=== PATIENT | male | born 1950 | race Caucasian/White ===

== ENCOUNTER 2021-03-07 10:08 | Emergency (ER) | payer MEDICARE, MEDICAID ==
[~2021-03-07] VITALS: Ht 175 cm; Wt 93.0 kg
[2021-03-07 11:02] LABS: BASOPHILS % (AUTO) 1 % (0-10); EOSINOPHILS # (AUTO) 0.2 10^3/uL (0.0-0.3); EOSINOPHILS % (AUTO) 4 % (0-10); HEMATOCRIT 33 % (40-54); HEMOGLOBIN 9.3 g/dL (13.3-17.7); LYMPHOCYTES # (AUTO) 0.8 10^3/uL (1.0-4.0); LYMPHOCYTES % (AUTO) 14 % (12-44); MEAN CORPUSCULAR HEMOGLOBIN 24 pg (25-34); MEAN CORPUSCULAR HGB CONC 28 g/dL (32-36); MEAN CORPUSCULAR VOLUME 83 fL (80-99); MEAN PLATELET VOLUME 9.4 fL (9.0-12.2); MONOCYTES # (AUTO) 0.6 10^3/uL (0.0-1.0); MONOCYTES % (AUTO) 11 % (0-12); NEUTROPHILS % (AUTO) 70 % (42-75); PLATELET COUNT 287 10^3/uL (130-400); WHITE BLOOD COUNT 5.7 10^3/uL (4.3-11.0)
[2021-03-07 11:59] LABS: INR 1.7 (0.8-1.4); PROTHROMBIN TIME PATIENT 20.2 SEC (12.2-14.7)
--- NOTE | 2021-03-07 14:11 | ED EENT ---
History of Present Illness General Chief Complaint: Nasal Problems Stated Complaint: NOSE BLEED Nursing Triage Note: ARRIVED FROM [facility] IN A WC. FACILTY STATES HE HAD HIS NOSE REMOVED DUE TO CANCER AND THEY CAN'T GET THE BLEEDING TO STOP. STATES THEY CALLED DR REYNOLDS WHO WAS GOING TO MEET HIM HERE. PT UNABLE TO TELL ME IF HE HAD THE SURGERY HERE. Source: patient Exam Limitations: no limitations Allergies and Home Medications Allergies Coded Allergies: Penicillins (Verified Allergy, Unknown, 03/06/21) sulfamethoxazole (Verified Allergy, Unknown, 03/06/21) Past Yvrgiha-Nszphc-Xjwces Hx Patient Social History Recent Infectious Disease Expo: No Recent Hopitalizations: Yes (NASAL SURGEY) Past Medical History Nose Respiratory: Yes Pneumonia Cardiac: Yes Coronary Artery Disease, Heart Attack Neurological: Yes Stroke Genitourinary: Yes UTI-Chronic Gastrointestinal: No Musculoskeletal: No Endocrine: Yes Diabetes, Non-Insulin dep HEENT: No Cancer: Yes (NASAL SQUAMOUS CELL) Psychosocial: No Integumentary: No Physical Exam Vital Signs Vital Signs - First Documented 03/07/21 10:17 Temp 36.1 Pulse 107 Resp 16 B/P (MAP) 99/76 (84) Pulse Ox 94 O2 Delivery Room Air Height, Weight, BMI Height: '" Weight: lbs. oz. kg; 30.00 BMI Method: Progress/Results/Core Measures Results/Orders Lab Results Laboratory Tests Test 03/07/21 10:52 03/07/21 11:40 Range/Units White Blood Count 5.7 4.3-11.0 10^3/uL Red Blood Count 3.95 L 4.30-5.52 10^6/uL Hemoglobin 9.3 L 13.3-17.7 g/dL Hematocrit 33 L 40-54 % Mean Corpuscular Volume 83 80-99 fL Mean Corpuscular Hemoglobin 24 L 25-34 pg Mean Corpuscular Hemoglobin Concent 28 L 32-36 g/dL Red Cell Distribution Width 21.6 H 10.0-14.5 % Platelet Count 287 130-400 10^3/uL Mean Platelet Volume 9.4 9.0-12.2 fL Immature Granulocyte % (Auto) 0 % Neutrophils (%) (Auto) 70 42-75 % Lymphocytes (%) (Auto) 14 12-44 % Monocytes (%) (Auto) 11 0-12 % Eosinophils (%) (Auto) 4 0-10 % Basophils (%) (Auto) 1 0-10 % Neutrophils # (Auto) 4.0 1.8-7.8 10^3/uL Lymphocytes # (Auto) 0.8 L 1.0-4.0 10^3/uL Monocytes # (Auto) 0.6 0.0-1.0 10^3/uL Eosinophils # (Auto) 0.2 0.0-0.3 10^3/uL Basophils # (Auto) 0.0 0.0-0.1 10^3/uL Immature Granulocyte # (Auto) 0.0 0.0-0.1 10^3/uL Prothrombin Time 20.2 H 12.2-14.7 SEC INR Comment 1.7 H 0.8-1.4 My Orders Orders - YUDI CLAYTON MD Cbc With Automated Diff (03/07/21 10:37) Protime With Inr (03/07/21 10:37) Vital Signs/I&O 03/07/21 10:17 Temp 36.1 Pulse 107 Resp 16 B/P (MAP) 99/76 (84) Pulse Ox 94 O2 Delivery Room Air Blood Pressure Mean: 84 Departure Impression Primary Impression: Postoperative bleeding from incision 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 Referrals: NI JAMES MD (PCP) Primary Care Physician SHEYLA GUTIERREZ (Family) Primary Care Physician Patient Instructions: Bleeding After Surgery Add. Discharge Instructions: Continue holding blood thinning medications such as Eliquis or Xarelto for the full 10 days as previously directed by Sheyla Gutierrez. Please check with Sheyla Gutierrez before restarting these medications. Expect serous sanguinous drainage persistently. A loose packing of the gauze or Merisel may be placed in the left nasal cavity to absorb moisture. Merisel may be cut to fit and will expand to fill the space. Packing should be replaced frequently when it becomes saturated. If the bleeding of bright red blood returns, cut a piece of Surgicel to fit to the bleeding space and apply direct pressure for 20 to 30 minutes. If bleeding does not stop, return to care. Keep follow-up appointments as previously directed. Call with questions or concerns. Return to the ER if there is worsening of condition or new urgent problems arise. All discharge instructions reviewed with patient and/or family. Voiced understanding. YUDI CLAYTON MD Mar 07, 2021 14:11
--- NOTE | 2021-03-07 14:15 | Consultation - Surgery ---
History of Present Illness History of Present Illness Patient Consulted On(jaylan/time) 03/07/21 12:14 Date Seen by Provider: Mar 07, 2021 Time Seen by Provider: 12:14 History of Present Illness Consult requested by Dr. Lyle for bleeding open wound. Patient is a 70-year-old male who underwent rhinectomy. He failed reconstruction and then had positive margins. He had surgical intervention in [facility]. He is in a snf currently. Patient has had some bleeding from his wound which attempted to have cauterized has failed. And continued to have some oozing. I was contacted to see if there is anything that I could potentially do. Patient poor historian. Patient was transferred to the emergency department for further evaluation and treatment. Patient with no caregivers present at this time. Allergies and Home Medications Allergies Coded Allergies: Penicillins (Verified Allergy, Unknown, 03/06/21) sulfamethoxazole (Verified Allergy, Unknown, 03/06/21) Patient Home Medication List Home Medication List Reviewed: Yes Past Feexmeq-Mlmxgn-Waynvp Hx Patient Social History Recent Hopitalizations: Yes (NASAL SURGEY) Surgeries History of Surgeries: Yes (Rhinectomy) Surgeries: Nose Respiratory History of Respiratory Disorde: Yes Respiratory Disorders: Pneumonia Cardiovascular History of Cardiac Disorders: Yes Cardiac Disorders: Coronary Artery Disease, Heart Attack Neurological History of Neurological Disord: Yes Neurological Disorders: Stroke Genitourinary History of Genitourinary Disor: Yes Genitourinary Disorders: UTI-Chronic Gastrointestinal History of Gastrointestinal Di: No Musculoskeletal History of Musculoskeletal Dis: No Endocrine History of Endocrine Disorders: Yes Endocrine Disorders: Diabetes, Non-Insulin dep HEENT History of HEENT Disorders: No Cancer History of Cancer: Yes (NASAL SQUAMOUS CELL) Psychosocial History of Psychiatric Problem: No Integumentary History of Skin or Integumenta: No Reviewed Nursing Assessment Reviewed/Agree w Nursing PMH: Yes Family Medical History Significant Family History: No Pertinent Family Hx Review of Systems-General Constitutional: No chills, No diaphoresis EENTM: other (Open wound from rhinectomy, scab on scalp of head from reconstruction attempt); No ear pain, No blurred vision Respiratory: No cough, No dyspnea on exertion Cardiovascular: no symptoms reported; No chest pain Gastrointestinal: No constipation, No nausea, No vomiting Genitourinary: No decreased output, No discharge Musculoskeletal: No back pain, No gout, No joint pain Skin: No change in color, No change in hair/nails Psychiatric/Neurological: Denies Anxiety, Denies Depressed, Denies Emotional Problems All Other Systems Reviewed Negative Unless Noted: Yes (Negative excepted noted.) Physical Exam-General Problems Physical Exam Vital Signs Vital Signs - First Documented 03/07/21 10:17 Temp 36.1 Pulse 107 Resp 16 B/P (MAP) 99/76 (84) Pulse Ox 94 O2 Delivery Room Air Capillary Refill : Less Than 3 Seconds General Appearance: WD/WN, no apparent distress HEENT: PERRL/EOMI, other (Open wound with granulation appearing tissue at the wound where the bridge of the nose would have been. There is continued bleeding from this area. The left nasal cavity exposed fairly open wound. Which is greater than the right) Neck: supple, normal inspection Respiratory: chest non-tender, no respiratory distress, no accessory muscle use Cardiovascular: regular rate, rhythm, no JVD Gastrointestinal: non tender, soft Rectal: deferred Back: no CVA tenderness, no vertebral tenderness Extremities: non-tender; No inflammation Neurologic/Psychiatric: no motor/sensory deficits, alert, normal mood/affect Skin: normal color, warm/dry Lymphatic: no adenopathy Data Review Labs Laboratory Tests 03/07/21 10:52: White Blood Count 5.7, Red Blood Count 3.95L, Hemoglobin 9.3L, Hematocrit 33L, Mean Corpuscular Volume 83, Mean Corpuscular Hemoglobin 24L, Mean Corpuscular Hemoglobin Concent 28L, Red Cell Distribution Width 21.6H, Platelet Count 287, Mean Platelet Volume 9.4, Immature Granulocyte % (Auto) 0, Neutrophils (%) (Auto) 70, Lymphocytes (%) (Auto) 14, Monocytes (%) (Auto) 11, Eosinophils (%) (Auto) 4, Basophils (%) (Auto) 1, Neutrophils # (Auto) 4.0, Lymphocytes # (Auto) 0.8L, Monocytes # (Auto) 0.6, Eosinophils # (Auto) 0.2, Basophils # (Auto) 0.0, Immature Granulocyte # (Auto) 0.0 03/07/21 11:40: Prothrombin Time 20.2H, INR Comment 1.7H Assessment/Plan Assessment/Plan Assessment/Plan Open bleeding wound status post rhinectomy Patient discussed need for hemostasis. He has had previous cauterization performed which this has recurred. Patient discussed cauterizing with silver nitrate and applying Surgicel as well which patient is in agreement with. Patient has silver nitrate applied to the open wound from the rhinectomy. This was then held with pressure with 4 x 4 gauze. Once hemostasis was achieved. Surgicel was cut into small pieces and placed over the areas that needed hemostasis. Pressure was held again for approximately 10 to 15 minutes. We monitored this area hemostasis was maintained. Okay with patient being discharged home with his previous schedule follow-up. Instructed family that showed up on management using Surgicel and pressure if unable to maintain to return to the ER and may need surgical intervention ASHLEY REYNOLDS DO Mar 07, 2021 14:15
[2021-03-07 14:22] VITALS: BP 118/75
== END 2021-03-07 14:22 | disposition home or self-care (01) ==
LOC: EDUNIT# 10:08 → ER 10:09
DX: C44.321 Squamous cell carcinoma of skin of nose (principal); T81.89XA Other complications of procedures, not elsewhere classified, initial encounter; E11.9 Type 2 diabetes mellitus without complications; I25.2 Old myocardial infarction; Z88.0 Allergy status to penicillin; Z88.2 Allergy status to sulfonamides; Z86.73 Personal history of transient ischemic attack (TIA), and cerebral infarction without residual deficits; Z79.01 Long term (current) use of anticoagulants
CPT/HCPCS: 36415; 85025; 85610; 99282

== ENCOUNTER → 2021-03-21 | Outpatient (CLI) | payer MEDICARE, MEDICAID ==
--- NOTE | 2021-03-21 14:30 | Diagnostic Imaging Report ---
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 Serum blood glucose level at the time of injection was 101 mg/dL. Patient was administered 14.1 mCi F-18 FDG intravenously in the left antecubital location and whole body PET imaging was performed. Noncontrast CT was also performed for attenuation correction and anatomic correlation. No prior studies are available for comparison. There is symmetric activity throughout the brain. There is a large hypermetabolic soft tissue mass originating in the left nasal cavity and extending to involve the entire left maxillary sinus and left ethmoid sinus. SUV max is approximately 17. Soft tissues of the neck are unremarkable. There are numerous hypermetabolic masses throughout both lungs consistent with pulmonary metastatic disease. A hypermetabolic mass in the right upper lobe measures 2.7 cm and demonstrates SUV max of approximately 12.7. There is a 2.6 cm right lower lobe mass with an SUV max of 10.4. No definite mediastinal or hilar hypermetabolism is identified. The patient does have [id number] bilateral pleural effusions. Liver contains two small areas of increased activity, largest in the inferior right lobe. These would be considered indeterminate and a dedicated CT would be useful for further evaluation. The inferior right lobe of the liver activity shows an SUV max of approximately 5. Both kidneys contain nonobstructing calculi, largest on the left 14 mm in size. There are numerous stones in the gallbladder. There is an approximately 3 cm mass arising from the right kidney posteriorly. A solid renal mass cannot be entirely excluded. No other suspicious uptake in the abdomen or pelvis is identified. There is a fat-containing umbilical hernia. The lower extremities are unremarkable. IMPRESSION: 1. Hypermetabolic left nasal cavity mass consistent with patient's primary malignancy. No definite hypermetabolic neck lymph nodes are seen. 2. Hypermetabolic pulmonary masses consistent with pulmonary metastatic disease. There are also [id number]-[id number] bilateral pleural effusions. 3. Questionable hypermetabolic lesions in the liver. Dedicated CT abdomen with and without IV contrast would be recommended for further evaluation. 4. Bilateral nonobstructing renal calculi and cholelithiasis. 5. Questionable solid mass involving the right kidney. This could be evaluated with the pre and postcontrast CT abdomen as well to evaluate for solid renal mass. Dictated by: Dictated on workstation # [id number]
== END ==
LOC: RAD 08:34
PROVIDERS: ATTEND Internal Medicine Hematology & Oncology
DX: C30.0 Malignant neoplasm of nasal cavity (principal); C78.00 Secondary malignant neoplasm of unspecified lung
CPT/HCPCS: 78816; A9552

== ENCOUNTER → 2021-03-27 | Outpatient (CLI) | payer MEDICARE, MEDICAID | LOC: WOUNDCARE 13:19 | PROVIDERS: ATTEND Surgery | DX: C44.321 Squamous cell carcinoma of skin of nose (principal); L98.492 Non-pressure chronic ulcer of skin of other sites with fat layer exposed | CPT/HCPCS: 99213 ==

== ENCOUNTER → 2021-03-31 | Outpatient (CLI) | payer MEDICARE, MEDICAID ==
[~2021-03-31] MED LIST: HOLD METFORMIN - RECEIVED CONTRAST 20 ML VIAL IV SCH
[2021-03-31] MEDS: IOHEXOL 350 MG/ML 100 ML (OMNIPAQUE 350) VIAL IV ONE (10:01)
[2021-03-31] MEDS: NS 100 ML (IVPB) BAG IV ONE (10:02)
[2021-03-31] MEDS: CATHETER FLUSH 10 ML SYR IV PRN (10:02)
--- NOTE | 2021-03-31 11:03 | Diagnostic Imaging Report ---
PROCEDURE: CT abdomen and pelvis with and without contrast. TECHNIQUE: Precontrast acquisitions were acquired through the abdomen and pelvis. Multiple contiguous axial images were obtained through the abdomen and pelvis after the administration of intravenous contrast. Auto Exposure Controls were utilized during the CT exam to meet ALARA standards for radiation dose reduction. INDICATION: Malignant neoplasm of the frontal sinus. Patient had a recent abnormal PET/CT study demonstrating questionable liver lesion as well as a questionable right renal lesion. This study is performed for further evaluation. COMPARISON: Correlation is made with prior PET/CT study from 03/21/2021. FINDINGS: There are small bilateral pleural effusions. There are nodules in both lung bases, consistent with pulmonary metastatic disease. The liver contains two subtle low densities. A lesion in the dome of the right lobe measures 15 mm. A low-density lesion more inferiorly in the right lobe measures 12 mm. Both of these lesions did not show increased uptake on recent PET study and are concerning for hepatic metastases. Gallbladder contains multiple stones. No biliary ductal dilatation is seen. Pancreas and spleen are unremarkable apart from multiple granulomas in the spleen. No adrenal mass is identified. Both kidneys contain nonobstructing calculi. Largest calculus on the right is approximately 9 mm. The largest calculus on the left is 13 mm. There is also a low-attenuation lesion in the lower pole of the right kidney measuring 4.9 cm and most consistent with a cyst. There is also a lesion in the posterior cortex of the right kidney measuring approximately 3 cm in size. This does show contrast enhancement and is concerning for small renal cell carcinoma. Aorta is nonaneurysmal. There is no central retroperitoneal or mesenteric lymphadenopathy. Generalized diverticulosis of the colon is noted but no evidence of acute diverticulitis. The bladder and prostate are unremarkable. There are fat-containing inguinal hernias bilaterally. There is also a fat-containing umbilical hernia. No free fluid or fluid collection is seen. No pelvic lymphadenopathy is identified. Osseous structures are without osteolytic or osteoblastic lesion. IMPRESSION: 1. Small bilateral pleural effusions and findings consistent with pulmonary metastatic disease. 2. Two low-density lesions in the liver which correspond with areas of hypermetabolism on PET and are concerning for hepatic metastases. 3. Cholelithiasis. 4. Features concerning for a solid right renal mass. This should be considered renal cell carcinoma until proven otherwise. 5. Nonobstructing bilateral nephrolithiases. 6. Uncomplicated diverticulosis. 7. Fat-containing umbilical and inguinal hernias. Dictated by: Dictated on workstation # [id number]
== END ==
LOC: RAD 08:45
PROVIDERS: ATTEND Internal Medicine Hematology & Oncology
DX: Z51.12 Encounter for antineoplastic immunotherapy (principal); C31.2 Malignant neoplasm of frontal sinus; J90 Pleural effusion, not elsewhere classified; K80.20 Calculus of gallbladder without cholecystitis without obstruction; N20.0 Calculus of kidney; K57.30 Diverticulosis of large intestine without perforation or abscess without bleeding; K40.90 Unilateral inguinal hernia, without obstruction or gangrene, not specified as recurrent; K42.9 Umbilical hernia without obstruction or gangrene
CPT/HCPCS: 74178

== ENCOUNTER → 2021-04-14 | Outpatient (CLI) | payer MEDICARE, MEDICAID ==
--- NOTE | 2021-04-14 11:59 | Diagnostic Imaging Report ---
PROCEDURE: US right lower extremity venous. TECHNIQUE: Multiple real-time grayscale images were obtained over the right lower extremity in various projections. Additional spectral analysis and color Doppler duplex images were also obtained. INDICATION: Pain and swelling right leg. FINDINGS: Real-time color Doppler imaging shows a normal blood flow throughout the right lower extremity venous system from the common femoral vein to the ankle. Calf compression shows normal augmentation of flow at the popliteal level. IMPRESSION: No evidence of venous thrombosis within the right lower extremity. Dictated by: Dictated on workstation # [id number]
== END ==
LOC: RAD 10:55
PROVIDERS: ATTEND Internal Medicine Hematology & Oncology
DX: M79.661 Pain in right lower leg (principal); R22.41 Localized swelling, mass and lump, right lower limb

== ENCOUNTER 2021-05-09 08:40 | Outpatient (RCR) | payer MEDICARE, MEDICAID ==
[2021-03-03 13:13] LABS: BASOPHILS % (AUTO) 1 % (0-10); EOSINOPHILS # (AUTO) 0.2 10^3/uL (0.0-0.3); EOSINOPHILS % (AUTO) 4 % (0-10); HEMATOCRIT 34 % (40-54); HEMOGLOBIN 9.6 g/dL (13.3-17.7); LYMPHOCYTES # (AUTO) 0.9 10^3/uL (1.0-4.0); LYMPHOCYTES % (AUTO) 17 % (12-44); MEAN CORPUSCULAR HEMOGLOBIN 23 pg (25-34); MEAN CORPUSCULAR HGB CONC 29 g/dL (32-36); MEAN CORPUSCULAR VOLUME 82 fL (80-99); MEAN PLATELET VOLUME 9.2 fL (9.0-12.2); MONOCYTES # (AUTO) 0.5 10^3/uL (0.0-1.0); MONOCYTES % (AUTO) 9 % (0-12); NEUTROPHILS # (AUTO) 3.9 10^3/uL (1.8-7.8); NEUTROPHILS % (AUTO) 70 % (42-75); PLATELET COUNT 327 10^3/uL (130-400); WHITE BLOOD COUNT 5.6 10^3/uL (4.3-11.0)
[2021-03-03 13:32] LABS: ALANINE AMINOTRANSFERASE 14 U/L (0-55); ALBUMIN 3.1 GM/DL (3.2-4.5); ALKALINE PHOSPHATASE 121 U/L (40-136); BILIRUBIN,TOTAL 0.3 MG/DL (0.1-1.0); BUN/CREATININE RATIO 16; CALCIUM 8.3 MG/DL (8.5-10.1); CARBON DIOXIDE 27 MMOL/L (21-32); CHLORIDE 100 MMOL/L (98-107); CREATININE SERUM 0.75 MG/DL (0.60-1.30); GFR ESTIMATED > 60; GLUCOSE 118 MG/DL (70-105); POTASSIUM 3.8 MMOL/L (3.6-5.0); SODIUM 136 MMOL/L (135-145); TOTAL PROTEIN 6.1 GM/DL (6.4-8.2)
[2021-05-05 09:33] LABS: BASOPHILS # (AUTO) 0.1 10^3/uL (0.0-0.1); BASOPHILS % (AUTO) 1 % (0-10); EOSINOPHILS # (AUTO) 0.4 10^3/uL (0.0-0.3); EOSINOPHILS % (AUTO) 8 % (0-10); HEMATOCRIT 35 % (40-54); HEMOGLOBIN 9.9 g/dL (13.3-17.7); LYMPHOCYTES # (AUTO) 0.7 10^3/uL (1.0-4.0); LYMPHOCYTES % (AUTO) 13 % (12-44); MEAN CORPUSCULAR HEMOGLOBIN 25 pg (25-34); MEAN CORPUSCULAR HGB CONC 28 g/dL (32-36); MEAN CORPUSCULAR VOLUME 86 fL (80-99); MEAN PLATELET VOLUME 9.9 fL (9.0-12.2); MONOCYTES # (AUTO) 0.5 10^3/uL (0.0-1.0); MONOCYTES % (AUTO) 9 % (0-12); NEUTROPHILS # (AUTO) 3.7 10^3/uL (1.8-7.8); NEUTROPHILS % (AUTO) 69 % (42-75); PLATELET COUNT 224 10^3/uL (130-400); WHITE BLOOD COUNT 5.4 10^3/uL (4.3-11.0)
[2021-05-05 09:52] LABS: ALANINE AMINOTRANSFERASE 10 U/L (0-55); ALBUMIN 3.4 GM/DL (3.2-4.5); ALKALINE PHOSPHATASE 135 U/L (40-136); BILIRUBIN,TOTAL 0.4 MG/DL (0.1-1.0); BUN/CREATININE RATIO 16; CALCIUM 8.4 MG/DL (8.5-10.1); CARBON DIOXIDE 26 MMOL/L (21-32); CHLORIDE 106 MMOL/L (98-107); GFR ESTIMATED > 60; GLUCOSE 100 MG/DL (70-105); POTASSIUM 3.9 MMOL/L (3.6-5.0); SODIUM 140 MMOL/L (135-145); TOTAL PROTEIN 6.2 GM/DL (6.4-8.2)
[~2021-05-09] VITALS: Ht 175.3 cm; Wt 91.2 kg
[~2021-05-09 08:40] MED LIST changes: +ALTEPLASE 2 MG (CATHFLO) CANCER CENTER IV ONE; -BARIUM SUSPENSION 2.1% (VANILLA SILQ) 450 ML PO ONE; -CATHETER FLUSH 10 ML SYR IV PRN; +FERRIC CARBOXYMALTOSE (CANCER) 750 MG in NS (IVPB) CANCER CENTER 250 ML IV SCH; -HOLD METFORMIN - RECEIVED CONTRAST 20 ML VIAL IV SCH; -IOHEXOL 350 MG/ML 100 ML (OMNIPAQUE 350) VIAL IV ONE; -NS 100 ML (IVPB) BAG IV ONE; +NS IV 500 ML (CANCER CENTER) IV SCH; +PEMBROLIZUMAB 200 MG in NS (IVPB) CANCER CENTER 50 ML IV SCH
== END 2021-05-26 09:44 | disposition home or self-care (01) ==
LOC: ONC 08:40
PROVIDERS: ATTEND Internal Medicine Hematology & Oncology
DX: Z51.12 Encounter for antineoplastic immunotherapy (principal); C44.321 Squamous cell carcinoma of skin of nose; C78.00 Secondary malignant neoplasm of unspecified lung; C31.2 Malignant neoplasm of frontal sinus
CPT/HCPCS: 80053; 84443; 85025; G0463; 36591; 36593; 77280; 77290; 77295; 77300; 77334; 77336; 77402; 77417; 82728; 83540; 83550; 96365; 96413; 99204; 99212; 99213

== ENCOUNTER → 2021-05-09 | Outpatient (CLI) | payer MEDICARE, MEDICAID ==
[~2021-05-09] MED LIST changes: +BARIUM SUSPENSION 2.1% (VANILLA SILQ) 450 ML PO ONE; +CATHETER FLUSH 10 ML SYR IV PRN; +IOHEXOL 350 MG/ML 100 ML (OMNIPAQUE 350) VIAL IV ONE; +NS 100 ML (IVPB) BAG IV ONE
--- NOTE | 2021-05-09 19:33 | Diagnostic Imaging Report ---
PROCEDURE: CT chest with contrast, CT abdomen and pelvis with and without contrast. TECHNIQUE: Pre and post intravenous contrast axial imaging of the abdomen and pelvis and post contrast axial imaging of the chest were performed. Auto Exposure Controls were utilized during the CT exam to meet ALARA standards for radiation dose reduction. 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 COMPARISON: CT abdomen and pelvis from 03/31/2021. PET/CT of 03/21/2021 FINDINGS: CHEST: No endoluminal nodule within the trachea. Scattered pulmonary nodules show decrease in size compared to prior PET/CT. In the right upper lobe there is a 1.5 x 1.6 cm nodule (image 48, series 301), previously 3.0 x 2.9 cm. Anterior right lower lobe 1.2 cm nodule. Previously noted left lower lobe rounded nodule has resolved. Mild paraseptal emphysema. Small bilateral pleural effusions. No supraclavicular or axillary lymphadenopathy. Enlarged right lower paratracheal lymph node measuring 1.2 cm. Precarinal lymph node measures 1.3 cm. There are some calcified lymph nodes compatible with old granulomatous infection. Normal caliber thoracic aorta. Severe coronary artery calcifications. Prior myocardial infarction involving the apex and intraventricular septum. No osseous lesions within the chest. ABDOMEN AND PELVIS: No free intraperitoneal air or fluid. The liver has no focal liver mass. Numerous calcified splenic granulomas. Abnormality of the pancreas. Gallbladder has layering stones present. No adrenal mass. The partially exophytic lesion in the posterior aspect of the right kidney stable in size measuring 2.5 x 2.9 cm and does show enhancement with mild washout indicative of a solid mass. There is exophytic cyst off the lower pole of the right kidney that has no enhancement. The left renal mass. No obstructive uropathy. Urinary bladder is normal. Prostate is not enlarged. Colonic diverticulosis without diverticulitis. No abdominal or pelvic lymphadenopathy. Atherosclerotic aorta is normal in caliber. No features of skeletal metastases. Diffuse osseous demineralization. IMPRESSION: 1. Favorable response to therapy as multiple bilateral pulmonary nodules have decreased in size. 2. The previously noted suspicious right renal mass does show enhancement and washout and is concerning for primary renal cell carcinoma. 3. Stable mediastinal lymphadenopathy. 4. Unchanged small bilateral pleural effusions. 5. No appreciable hepatic lesion. Dictated by: Dictated on workstation # [id number]
== END ==
LOC: RAD 11:45
PROVIDERS: ATTEND Internal Medicine Hematology & Oncology
DX: Z51.12 Encounter for antineoplastic immunotherapy (principal); C31.2 Malignant neoplasm of frontal sinus; J90 Pleural effusion, not elsewhere classified; R59.0 Localized enlarged lymph nodes; R91.8 Other nonspecific abnormal finding of lung field
CPT/HCPCS: 71260; 74178